=== PATIENT | female | born 1970 | race Caucasian/White ===

== ENCOUNTER → 2017-08-06 | Day surgery (SDC) | payer OTHER ==
[~2017-08-06] VITALS: Ht 165.1 cm; Wt 84.9 kg
[~2017-08-06] MED LIST: *morphine SULFATE 8 MG/ML PERIprocedure ONLY ONE; ALPR0.25 PO; AMLO2.5T PO; CHLORHEXIDINE GLUCONATE 2 % 1 PACK (2 CLOTHS) TOPICAL PRN; CYAN1000P IM; CYCL5TAB PO; DICL75TA PO; DO NOT ADM ANY ANTICOAGULANT DRUGS PRN; EVEN10003 PO; GABA600T PO; GLYCOPYRROLATE 1 MG/5 ML SYRINGE IV PUSH ONE; INSULIN HUMAN REGULAR 1,000 UNITS/10 ML VIAL SQ PRN; LACTATED RINGER'S 1000 ML IV PRN; LEVA500T20 PO; LEVOFLOXACIN 500 MG PREMIX INJ 100 ML IV SCH; LIDOCAINE HCL 1% PF 5 ML AMPULE OTHER ONE; LISI10TA3 PO; MAGN1TAB14 PO; MEPERIDINE HCL 50 MG/ML VIAL ONE; METF500T PO; METOPROLOL TARTRATE 25 MG TAB PO PRN; MIDAZOLAM HCL 2 MG/2 ML VIAL IV ONE; MORPHINE SULFATE 4 MG/ML INJ ONE; NAPR500 PO; OMEG1CAP41 PO; ONDANSETRON HCL 4 MG/2 ML VIAL IV PUSH ONE; ONDANSETRON HCL 4 MG/2 ML VIAL IV PUSH PRN; PERC5TAB12 PO; PHEN0.4T PO; PHENYLEPH/NS 1000 MCG/10 ML SYR IV ONE; POTA1080 PO; PROPOFOL 200 MG/20 ML AMP IV ONE; ROSU40 PO; SODIUM CHLORID 0.9% 500 ML IV PRN; TAMS5CAP PO; TRAM50TA PO; [UNRECOGNIZED DRUG - CODE] PO; hydrALAZINE HCL 20 MG/ML VIAL IV ONE; oxyCODONE/ACETAMINOPHEN 5 MG/325 MG TAB PO PRN
[2017-08-06 10:22] LABS: AUTOMATED NEUTROPHIL # 6.2 TH/MM3 (1.8-7.7); BASOPHIL # 0.1 TH/MM3 (0-0.2); BASOPHIL % 0.9 % (0.0-2.0); EOSINOPHIL # 0.2 TH/MM3 (0-0.4); EOSINOPHIL % 1.7 % (0.0-4.0); HEMATOCRIT 39.9 % (35.0-46.0); HEMOGLOBIN 13.5 GM/DL (11.6-15.3); LYMPH % 31.6 % (9.0-44.0); LYMPHOCYTE # 3.3 TH/MM3 (1.0-4.8); MEAN CELL VOLUME 92.9 FL (80.0-100.0); MEAN CORPUSCULAR HEMOGLOBIN 31.3 PG (27.0-34.0); MEAN CORPUSCULAR HGB CONC 33.7 % (32.0-36.0); MEAN PLATELET VOLUME 9.2 FL (7.0-11.0); MONO % 5.7 % (0.0-8.0); MONOCYTE # 0.6 TH/MM3 (0-0.9); NEUT % 60.1 % (16.0-70.0); PLATELET COUNT 275 TH/MM3 (150-450); RED BLOOD COUNT 4.29 MIL/MM3 (4.00-5.30); RED CELL DISTRIBUTION WIDTH 14.2 % (11.6-17.2); WHITE BLOOD COUNT 10.4 TH/MM3 (4.0-11.0)
--- NOTE | 2017-08-06 12:03 | PD.OP ---
Operative Report Date of Surgery: Aug 06, 2017 Preoperative Diagnosis: (1) Pyelonephritis Postoperative Diagnosis: (1) Ureteral stricture, right (2) Pyelonephritis Procedure: Cystoscopy, right ureteroscopy with dilation distal ureteral stricture, flexible right renoscopy and placement of a right double-J stent. Anesthesia: General Surgeon: Hemanth Singh Web Services Architect(s): None Operation and Findings: Indication for procedure: Case of a pleasant 46-year-old female with history nephrolithiasis who recently had a CT scan in April this year which demonstrated thickening to the right renal pelvis and proximal ureter as well as a very small right renal calculus. Patient continues to have ongoing right flank pain and presents now for further urologic evaluation to include ureteroscopy/ renoscopy. Operative procedure in detail: Patient was brought to the operating suite and placed supine on the OR table. She was then placed under general anesthesia. She was then repositioned in the dorsal lithotomy position and prepped and draped in normal sterile fashion. After an appropriate timeout was undertaken I proceeded with cystoscopic evaluation utilizing the rigid cystoscope with a 30 lens and 20 Wallisian sheath. Both right and left ureteral orifices were in correct anatomic position. There was normal clear upper from the left orifice and sluggish clear output from the right orifice. I then proceeded with passing a sensor 0.035 wire of the patient's right ureter into the right renal pelvis under fluoroscopic guidance. I next passed the ureteral access sheath over the wire and significant resistance was met several centimeters proximal to the ureteral orifice that precluded further advancement of the sheath. The sheath was withdrawn and the previously placed guidewire was secured to sterile drape with hemostat. The self dilating ureteroscope was utilized and this was passed alongside the guidewire. A secondary wire was passed the lumen of the scope to facilitate scope passage. The patient was noted to have ureteral stricture formation involving the distal right ureter several centimeters from the ureteral orifice. This stricture was dilated utilizing the ureteroscope which was then further advanced up the right ureter all the way to the ureteropelvic junction. The ureter itself was moderately dilated however there were no other abnormalities noted. The self dilating ureteroscope was then exchanged for the flexible ureteroscope and renoscopy performed. There were no abnormalities noted other than a few calcifications involving one of the renal ampullae. The flexible scope was then carefully withdrawn and removed. The cystoscope was reintroduced and a 6 Wallisian 24 cm optimal stent was placed on the both cystoscopic and fluoroscopic guidance without difficulty. Once the stent was in proper position of the trailing string was removed. A retrograde pouch study was not performed as the patient has a sensitivity to iodinated contrast material. The patient tolerated the procedures without complications and was transferred to the PACU in satisfactory condition. I anticipate leaving the indwelling stent for a minimum of 4 weeks postoperatively. Hemanth Singh MD Aug 06, 2017 12:03
[2017-08-06 15:25] VITALS: BP 142/82; PULSE 53; RESP 16; TEMP 97.4; O2SAT 100
== END | disposition home or self-care (01) ==
LOC: HSDC 09:33
PROVIDERS: ATTEND Urology
DX: N12 Tubulo-interstitial nephritis, not specified as acute or chronic (principal); N13.5 Crossing vessel and stricture of ureter without hydronephrosis; Z87.442 Personal history of urinary calculi; Z01.818 Encounter for other preprocedural examination
CPT/HCPCS: 52332; 85025; C1769; J0360; J1956; J2175; J2250; J2270; J2370; J2405; J3010